=== PATIENT | female | born 1980 | race Caucasian/White ===

== ENCOUNTER 2019-07-31 08:28 | Emergency (ER) | payer OTHER ==
[~2019-07-31] VITALS: Ht 165.1 cm; Wt 86.2 kg
--- NOTE | 2019-07-31 08:30 | NUR ---
[id number] W/ PD FOR MEDICAL CLEARANCE C/O ABDOMINAL PAIN AND NAUSEA. TO ER BED 11, HOOKED TO MONITOR. PATIENT HAD AN EPISODE OF VOMITING. DR RYAN AT BEDSIDE
[2019-07-31 08:56] LABS: BASOPHILS # (AUTO) 0.1 /CMM (0.0-0.2); BASOPHILS % (AUTO) 1.1 % (0.0-2.0); EOSINOPHILS % (AUTO) 2.5 % (0.0-6.0); HEMATOCRIT 47 % (33-45); HEMOGLOBIN 15.6 g/dL (11.5-14.8); LYMPHOCYTES # (AUTO) 1.7 /CMM (0.8-4.8); LYMPHOCYTES % (AUTO) 22.7 % (20.0-44.0); MEAN CORPUSCULAR HGB CONC 33 g/dl (31.0-36.0); MEAN CORPUSCULAR VOLUME 83 fL (82-100); MONOCYTES # (AUTO) 0.5 /CMM (0.1-1.30); MONOCYTES % (AUTO) 6.8 % (2.0-12.0); NEUTROPHILS # (AUTO) 4.9 /CMM (1.8-8.9); NEUTROPHILS % (AUTO) 66.9 % (43.0-81.0); PLATELET COUNT (AUTO) 263 /CMM (150-450); RED BLOOD CELL COUNT(AUTO) 5.74 MIL/uL (4.0-5.2); WHITE BLOOD COUNT (AUTO) 7.3 K/uL (4.3-11.0)
[2019-07-31 09:04] LABS: CALCIUM, SERUM 8.5 mg/dL (8.5-10.1); CREATININE 0.9 mg/dL (0.6-1.3); POTASSIUM 4.8 mmol/L (3.5-5.1)
[2019-07-31] MEDS ORDERED: CLONIDINE HCL 0.1 MG TABLET ONE (09:55)
[2019-07-31] MEDS ORDERED: IBUPROFEN 600 MG TABLET PO ONE ×2 (09:55→10:00)
[2019-07-31] MEDS ORDERED: ONDANSETRON 4 MG TAB.RAPDIS ONE (09:55)
[2019-07-31] MEDS ORDERED: ONDANSETRON 4 MG TAB.RAPDIS SL ONE (10:00)
[2019-07-31] MEDS ORDERED: CLONIDINE HCL 0.1 MG TABLET PO ONE (10:00)
[2019-07-31 10:18] VITALS: BP 134/83
--- NOTE | 2019-07-31 10:18 | NUR ---
Patient discharged in custody of YARITZA [facility] #[id number] in stable condition. Written and verbal after care instructions given. YARITZA verbalizes understanding of instruction.
== END 2019-07-31 10:27 ==
LOC: ER 08:32
DX: F11.23 Opioid dependence with withdrawal (principal); F15.10 Other stimulant abuse, uncomplicated; F13.10 Sedative, hypnotic or anxiolytic abuse, uncomplicated; F43.29 Adjustment disorder with other symptoms
CPT/HCPCS: 36415; 80048; 84702; 85025; 99283; Q0162

== ENCOUNTER 2019-07-31 17:50 | Emergency (ER) | payer OTHER ==
[~2019-07-31] VITALS: Ht 165.1 cm; Wt 86.2 kg
--- NOTE | 2019-07-31 17:54 | NUR ---
BRADY CHISHOLM FOR NAUSEA AND VOMITING. MEDICALLY CLEARED EARLIER. TO ER BED 11, HOOKED TO MONITOR, WARM BLANKET PROVIDED, AWAITING MD HERNADEZ.
--- NOTE | 2019-07-31 18:14 | NUR ---
DR TAPIA AT BEDSIDE
[2019-07-31] MEDS ORDERED: IV NS 0.9% 1,000 ML BAG IV ONE (18:30)
[2019-07-31] MEDS ORDERED: ONDANSETRON HCL/PF 4 MG/2 ML VIAL IVP ONE (18:30)
[2019-07-31 19:05] LABS: BASOPHILS % (AUTO) 0.4 % (0.0-2.0); HEMATOCRIT 50 % (33-45); HEMOGLOBIN 16.6 g/dL (11.5-14.8); LYMPHOCYTES # (AUTO) 1.1 /CMM (0.8-4.8); LYMPHOCYTES % (AUTO) 10.5 % (20.0-44.0); MEAN CORPUSCULAR HGB CONC 33 g/dl (31.0-36.0); MEAN CORPUSCULAR VOLUME 82 fL (82-100); MONOCYTES # (AUTO) 0.3 /CMM (0.1-1.30); MONOCYTES % (AUTO) 2.9 % (2.0-12.0); NEUTROPHILS # (AUTO) 9.3 /CMM (1.8-8.9); NEUTROPHILS % (AUTO) 86.2 % (43.0-81.0); PLATELET COUNT (AUTO) 366 /CMM (150-450); RED BLOOD CELL COUNT(AUTO) 6.11 MIL/uL (4.0-5.2); WHITE BLOOD COUNT (AUTO) 10.8 K/uL (4.3-11.0)
--- NOTE | 2019-07-31 19:27 | NUR ---
REPORT GIVEN TO SOLA RIVAS FOR AMEE
[2019-07-31] MEDS ORDERED: ONDANSETRON HCL/PF 4 MG/2 ML VIAL ONE (19:30)
[2019-07-31 19:59] LABS: CALCIUM, SERUM 8.9 mg/dL (8.5-10.1); POTASSIUM 4.1 mmol/L (3.5-5.1)
[2019-07-31 20:05] LABS: BILIRUBIN,TOTAL 0.7 mg/dL (0.2-1.0); TOTAL PROTEIN, SERUM 8.8 g/dL (6.4-8.2)
[2019-07-31 20:58] LABS: ALBUMIN 3.6 g/dL (3.4-5.0)
[2019-07-31] MEDS ORDERED: METOCLOPRAMIDE HCL 10 MG/2 ML VIAL ONE (21:06)
[2019-07-31 21:30] VITALS: BP 129/75
[2019-07-31] MEDS ORDERED: METOCLOPRAMIDE HCL 10 MG/2 ML VIAL IV ONE (21:30)
== END 2019-07-31 21:31 ==
LOC: ER 17:55
DX: R11.10 Vomiting, unspecified (principal); F11.23 Opioid dependence with withdrawal
CPT/HCPCS: 36415; 80048; 80076; 83690; 85025; 96361; 96374; 96375; 99284; J2405; J2765; J7030

== ENCOUNTER 2021-06-30 05:03 | Inpatient (IN) | payer OTHER ==
[~2021-06-30] VITALS: Ht 175.3 cm; Wt 113.4 kg
--- NOTE | 2021-06-30 05:20 | NUR ---
BIBRA 102 FROM HOME C/O R RIB PAIN X4 DAYS. "KNEED BY BOYFRIEND" +WEAKNESS WHILE WALKING. PT A/OX3. TOLERATING R/A WELL WITH NO SOB
--- NOTE | 2021-06-30 05:33 | NUR ---
PT signed waiver form. valance cutter at pt's bedside
[2021-06-30] MEDS ORDERED: ACETAMINOPHEN 325 MG TABLET ONE (06:49)
[2021-06-30] MEDS ORDERED: IV NS 0.9% 1,000 ML IV ONE (07:00)
[2021-06-30] MEDS ORDERED: ACETAMINOPHEN 325 MG TABLET PO ONE (07:00)
--- NOTE | 2021-06-30 07:15 | NUR ---
DIRECTOR OF CLOUD SERVICES AT PT'S BEDSIDE
[2021-06-30] MEDS ORDERED: IOHEXOL-350 100 ML VIAL IV ONE (07:16)
[2021-06-30] MEDS ORDERED: CT SWABBABLE VALVE TRANS SET 1 EA INFUS.SET MC ONE (07:16)
[2021-06-30] MEDS ORDERED: IV NS 0.9% 250 ML IV ONE (07:17)
[2021-06-30 07:27] LABS: BASOPHILS % (AUTO) 0.1 % (0.0-2.0); EOSINOPHILS % (AUTO) 0.7 % (0.0-6.0); HEMATOCRIT 41 % (33-45); HEMOGLOBIN 13.6 g/dL (11.5-14.8); LYMPHOCYTES # (AUTO) 0.3 K/uL (0.8-4.8); LYMPHOCYTES % (AUTO) 2.3 % (20.0-44.0); MEAN CORPUSCULAR HGB CONC 33 g/dl (31.0-36.0); MEAN CORPUSCULAR VOLUME 79 fL (82-100); MONOCYTES # (AUTO) 0.7 K/uL (0.1-1.30); MONOCYTES % (AUTO) 4.6 % (2.0-12.0); NEUTROPHILS % (AUTO) 92.3 % (43.0-81.0); RED BLOOD CELL COUNT(AUTO) 5.22 MIL/uL (4.0-5.2); WHITE BLOOD COUNT (AUTO) 15.2 K/uL (4.3-11.0)
--- NOTE | 2021-06-30 07:33 | NUR ---
CALLED HOUSE SUP FOR MIDLINE.
[2021-06-30 07:39] LABS: ALBUMIN 1.8 g/dL (3.4-5.0); BILIRUBIN,TOTAL 4.6 mg/dL (0.2-1.0); CALCIUM, SERUM 8.4 mg/dL (8.5-10.1); CREATININE 3.1 mg/dL (0.6-1.3); TOTAL PROTEIN, SERUM 6.3 g/dL (6.4-8.2)
[2021-06-30 07:43] LABS: POTASSIUM 2.7 mmol/L (3.5-5.1)
[2021-06-30] MEDS ORDERED: IV LR 1000 ML 1,000 ML IV ONE (08:00)
--- NOTE | 2021-06-30 08:22 | NUR ---
MIDLINE NURSE AT BEDSIDE
[2021-06-30] MEDS ORDERED: PIPERACILLIN /TAZOBACTAM 3.375 G in IV D5W 50 ML IV ONE (08:30)
--- NOTE | 2021-06-30 08:42 | NUR ---
RT AT BEDSIDE FOR VBG
[2021-06-30] MEDS ORDERED: PIPERACILLIN /TAZOBACTAM 3.375 G VIAL IV ONE (08:47)
[2021-06-30 08:54] LABS: ABG BASE EXCESS -6.4 mmol/L; ABG PCO2 24.4 mmHg (35.0-45.0); ABG PH 7.436 (7.350-7.450); COHb 0.6 % (0.5-1.5); MetHb 0.3 % (0.0-1.5); O2Hb 93.4 % (94.0-97.0); SITE, ABG Other
[2021-06-30] MEDS ORDERED: POTASSIUM CHLORIDE 20 MEQ TAB.PRT.SR PO ONE ×2 (09:13→09:30)
[2021-06-30] MEDS ORDERED: INSULIN REGULAR, HUMAN 100 UNIT/ML 10 ML VIAL ONE (09:13)
--- NOTE | 2021-06-30 09:18 | NUR ---
COVID SWAB DONE AND SENT TO LAB
[2021-06-30] MEDS ORDERED: OMEP20TA20 PO (09:22)
--- NOTE | 2021-06-30 09:24 | NUR ---
MOVE SHEET SUBMITTED AND CALLED FOR TELE BED.
[2021-06-30] MEDS ORDERED: POTASSIUM CHLORIDE 10 MEQ/50 ML PREMIXED IVPB FOR PERIPHERAL LINE IV ONE (09:30)
[2021-06-30] MEDS ORDERED: INSULIN REGULAR, HUMAN 100 UNIT/ML 10 ML VIAL IV ONE ×3 (09:30→12:00)
[2021-06-30] MEDS ORDERED: POTASSIUM CL. PREMIX PERIPHER. 50 ML ONE (09:39)
--- NOTE | 2021-06-30 09:45 | NUR ---
PT IS WHEELED TO CT SCAN VIA [facility].
--- NOTE | 2021-06-30 09:58 | NUR ---
BACK FROM CT SCAN
[2021-06-30 11:19] LABS: EOSINOPHILS % (MANUAL) 1 % (0-4); LYMPHOCYTES % (MANUAL) 3 % (16-48); MONOCYTES % (MANUAL) 6 % (0-11.0); NEUTROPHILS % (MANUAL) 90 (42-76)
[2021-06-30 11:24] LABS: PLATELET COUNT (AUTO) 48 K/uL (150-450)
--- NOTE | 2021-06-30 11:32 | NUR ---
[facility] CALLED CARPET TILE LAYER PAGED.
[2021-06-30 12:32] LABS: CALCIUM, SERUM 7.6 mg/dL (8.5-10.1); CREATININE 3.1 mg/dL (0.6-1.3); POTASSIUM 3.1 mmol/L (3.5-5.1)
[2021-06-30 12:54] LABS: BILIRUBIN,URINE SMALL (NEGATIVE); COLOR,URINE YELLOW (YELLOW); LEUKOCYTE ESTERASE ,URINE SMALL (NEGATIVE); NITRITE, URINE POSITIVE (NEGATIVE); PROTEIN,URINE 30 mg/dl (NEGATIVE); UGLUCOSE 500 MG/DL mg/dL (NEGATIVE)
[2021-06-30 14:13] LABS: BACTERIA,URINE Few /HPF (None Seen); SQUAMOUS EPITHELIAL CELL,UR Few /HPF (None Seen)
--- NOTE | 2021-06-30 14:41 | NUR ---
BED 106
--- NOTE | 2021-06-30 14:46 | NUR ---
REPORT GIVEN TO ANNA RIVAS FOR AMEE
--- NOTE | 2021-06-30 15:00 | NUR ---
BOILER MECHANIC NOTES RECEIVED PATIENT FROM ED, A/O X3 WELSH SPEAKING PATIENT COMPLAINS OF RIGHT RIB PAIN WITH NO AGGRAVATING FACTOR. VITAL SIGNS ARE FOLLOWS: 102.7 TEMP, 139/77 BP, 122 HR, 95 O2, AND 20 RR. O2 SUPPLEMENTATION VIA NASAL CANNULA WITH 4 LITERS OF DELIVERY PER MINUTE. ASSESSMENTS ARE DONE ON PATIENT. ALL SAFETY MEASURES IN PLACE. BED IN LOWEST POSITION AND LOCKED. TWO SIDE RAILS ARE UP. CALL LIGHT WITHIN REACH. WILL CONTINUE TO MONITOR.
[2021-06-30] MEDS ORDERED: DEXTROSE 50%-WATER 50 ML DISP.SYRIN IV PRN (16:00)
[2021-06-30] MEDS ORDERED: Z GUARD REMEDY 4 OZ OINT TP PRN (16:00)
[2021-06-30] MEDS ORDERED: MAG HYDROX/AL HYDROX/SIMETH 30 ML UDC PO PRN (16:00)
[2021-06-30] MEDS ORDERED: MAGNESIUM HYDROXIDE 30 ML UDC PO PRN (16:00)
[2021-06-30] MEDS ORDERED: ACETAMINOPHEN 325 MG TABLET PO PRN (16:00)
[2021-06-30] MEDS ORDERED: ONDANSETRON HCL/PF 4 MG/2 ML VIAL IVP PRN (16:00)
[2021-06-30] MEDS ORDERED: ZOLPIDEM TARTRATE 5 MG TABLET PO PRN (16:00)
[2021-06-30] MEDS: INSULIN GLARGINE, 100 UNIT/ML CARTRIDGE SQ SCH (16:30)
[2021-06-30 17:12] VITALS: BP 139/77
[2021-06-30] MEDS: INSULIN REGULAR, HUMAN 100 UNIT/ML 3 ML VIAL SQ PRN (18:31)
[2021-06-30] MEDS: BLOOD SUGAR DIAGNOSTIC 1 EACH STRIP IN SCH ×2 (18:32→22:10)
--- NOTE | 2021-06-30 19:10 | NUR ---
RN NOTES RECEIVED REPORT FROM MORNING RN. PATIENT IN BED ASLEEP. WITH REED CATHETER CONNECTED TO URINE BAG DRAINING YELLOWISH URINE. WITH MIDLINE AT L UA # 18 FLUSHES WELL. VITAL SIGNS TAKEN AND RECORDED. AFEBRILE. ALL SAFETY MEASURES IN PLACE AT ALL TIMES. HOB ELEVATED. CALL LIGHT WITHIN REACH. WILL CLOSELY MONITOR THE PATIENT.
[2021-06-30] MEDS: IV NS 0.9% 1,000 ML IV PRN (19:37)
--- NOTE | 2021-06-30 19:40 | NUR ---
RN NOTES PATIENT REMAINS STABLE. STARTED IV NS 125 CC/HR, IV ATB STARTED WELL TO RUN @ 4 HOURS.
[2021-06-30] MEDS: PIPERACILLIN /TAZOBACTAM 3.375 G in IV D5W 100 ML IV SCH (19:45)
[2021-06-30 20:00] VITALS: BP 133/75
[2021-06-30] MEDS: *INSULIN REGULAR(HUMULIN R)HUM 100 UNIT/ML VIAL SQ PRN (22:08)
--- NOTE | 2021-06-30 22:10 | NUR ---
RN NOTES BS 207 MG/DL 4 UNITS OF REGULAR INSULIN PER SLIDING SCALE GIVEN
[2021-07-01] VITALS: BP_SYST 121; BP_SYST 123; BP_DIAS 67; BP_DIAS 78
[2021-07-01] MEDS: IV NS 0.9% 1,000 ML IV PRN ×3 (03:21→20:33)
[2021-07-01 04:00] VITALS: BP 132/79
--- NOTE | 2021-07-01 06:39 | NUR ---
RN NOTES PATIENT REMAINS STABLE NO SIGNIFICANT CHANGES IN HEALTH CONDITION AFEBRILE. ALL DUE MEDS GIVEN ORDERED. ALL SAFETY MEASURES IN PLACE AT ALL TIMES. HOB ELEVATED. CALL LIGHT WITHIN REACH. BED ON LOWEST POSITION AND LOCKED. ALL NEEDS ATTENDED. WILL ENDORSED TO MORNING SHIFT FOR AMEE
[2021-07-01 06:55] LABS: BASOPHILS % (AUTO) 0.2 % (0.0-2.0); EOSINOPHILS % (AUTO) 2.1 % (0.0-6.0); HEMATOCRIT 34 % (33-45); HEMOGLOBIN 11.4 g/dL (11.5-14.8); LYMPHOCYTES # (AUTO) 0.7 K/uL (0.8-4.8); LYMPHOCYTES % (AUTO) 3.7 % (20.0-44.0); MEAN CORPUSCULAR HGB CONC 33 g/dl (31.0-36.0); MEAN CORPUSCULAR VOLUME 78 fL (82-100); MONOCYTES # (AUTO) 1.1 K/uL (0.1-1.30); MONOCYTES % (AUTO) 5.8 % (2.0-12.0); NEUTROPHILS # (AUTO) 16.3 K/uL (1.8-8.9); NEUTROPHILS % (AUTO) 88.2 % (43.0-81.0); WHITE BLOOD COUNT (AUTO) 18.4 K/uL (4.3-11.0)
[2021-07-01 07:13] LABS: ALANINE AMINOTRANSFERASE 9 U/L (12-78); ALKALINE PHOSPHATASE 238 U/L (46-116); ASPARTATE AMINOTRANSFERASE 17 U/L (15-37); BILIRUBIN,DIRECT 3.1 mg/dL (0.0-0.2); BILIRUBIN,TOTAL 3.6 mg/dL (0.2-1.0); CALCIUM, SERUM 7.3 mg/dL (8.5-10.1); CARBON DIOXIDE 17 mmol/L (21-32); CHLORIDE 95 mmol/L (98-107); CREATININE 2.9 mg/dL (0.6-1.3); GLUCOSE 176 mg/dL (74-106); MAGNESIUM 1.9 mg/dL (1.8-2.4); PHOSPHORUS 1.2 mg/dL (2.5-4.9); POTASSIUM 2.9 mmol/L (3.5-5.1); SODIUM SERUM 126 mmol/L (136-145); TOTAL PROTEIN, SERUM 5.6 g/dL (6.4-8.2); UREA NITROGEN, BLOOD 48 mg/dL (7-18)
[2021-07-01 07:21] LABS: PLATELET COUNT (AUTO) 38 K/uL (150-450)
--- NOTE | 2021-07-01 07:30 | NUR ---
RN NOTES RECEIVED PATIENT IN BED WITH CLOSED EYES. OPENS EYES UPON CALLING HER NAME. NO SIGNIFICANT CHANGES . AFEBRILE. NO SOB , NO RESPIRATORY DISTRESS NOTED. IV ACCESS L UPPER ARM MIDLINE PATENT RUNNING NS AT 125 ML/HR. REED CATHETER INTACT. ALL SAFETY MEASURES IN PLACE AT ALL TIMES. HOB ELEVATED. CALL LIGHT AND TABLE WITHIN REACH. BED ON LOWEST POSITION AND LOCKED. WILL CONTINUE TO MONITOR.
[2021-07-01 07:35] LABS: CHOLESTEROL 91 mg/dL (<200); LDL 54 mg/dL (0-99)
[2021-07-01] MEDS: BLOOD SUGAR DIAGNOSTIC 1 EACH STRIP IN SCH ×4 (07:40→23:03)
[2021-07-01] MEDS: PANTOPRAZOLE 40 MG TABLET.DR PO SCH (07:44)
--- NOTE | 2021-07-01 08:00 | NUR ---
RN NOTES HELD INSULIN FOR 729 SINCE PATIENT IS REFUSING TO EAT BREAKFAST AND SNACKS. BS= 169
[2021-07-01] MEDS: PIPERACILLIN /TAZOBACTAM 3.375 G in IV D5W 100 ML IV SCH ×2 (08:08→20:33)
[2021-07-01 08:28] LABS: EOSINOPHILS % (MANUAL) 2 % (0-4); LYMPHOCYTES % (MANUAL) 5 % (16-48); MONOCYTES % (MANUAL) 6 % (0-11.0); NEUTROPHILS % (MANUAL) 87 (42-76)
[2021-07-01 08:37] LABS: TRIGLYCERIDES 255 mg/dL (30-150)
[2021-07-01 09:01] LABS: ALBUMIN 1.4 g/dL (3.4-5.0)
[2021-07-01 09:03] LABS: HDL CHOLESTEROL < 10 mg/dL (40-60)
[2021-07-01 09:36] VITALS: BP 138/79
[2021-07-01 12:00] VITALS: BP 115/57
[2021-07-01] MEDS: INSULIN REGULAR, HUMAN 100 UNIT/ML 3 ML VIAL SQ PRN ×2 (13:19→17:33)
[2021-07-01 16:12] VITALS: BP 118/68
[2021-07-01] MEDS ORDERED: K PHOS NEUTRAL 250 MG TABLET PO ONE (16:30)
--- NOTE | 2021-07-01 18:38 | NUR ---
RN CLOSING NOTES PATIENT IN BED WITH CLOSED EYES. OPENS EYES UPON CALLING HER NAME. NO SIGNIFICANT CHANGES . AFEBRILE. NO SOB , NO RESPIRATORY DISTRESS NOTED. IV ACCESS L UPPER ARM MIDLINE PATENT RUNNING NS AT 125 ML/HR. REED CATHETER INTACT. ALL DUE MEDS GIVEN ORDERED.ALL SAFETY MEASURES IN PLACE AT ALL TIMES. HOB ELEVATED. CALL LIGHT AND TABLE WITHIN REACH. BED ON LOWEST POSITION AND LOCKED. WILL ENDORSE FOR AMEE.
--- NOTE | 2021-07-01 19:10 | NUR ---
RN NOTES RECEIVED REPORT FROM MORNING RN. PATIENT IN BED ASLEEP A/O X3 ABLE TO MAKE NEEDS KNOWN. WITH REED CATHETER CONNECTED TO URINE BAG DRAINING YELLOWISH URINE. WITH MIDLINE AT L UA # 18 FLUSHES WELL. WITH ONGOING IVF NS @ 125CC/HR TOLERATING WELL. VITAL SIGNS TAKEN AND RECORDED. AFEBRILE. ALL SAFETY MEASURES IN PLACE AT ALL TIMES. HOB ELEVATED. CALL LIGHT WITHIN REACH. WILL CLOSELY MONITOR THE PATIENT.
[2021-07-01 20:00] VITALS: BP 143/81
--- NOTE | 2021-07-01 22:20 | NUR ---
RN NOTES BS 180 MG/DL REGULAR INSULIN PER SLIDING SCALE GIVEN.
[2021-07-01] MEDS: INSULIN GLARGINE, 100 UNIT/ML CARTRIDGE SQ SCH (23:02)
[2021-07-01] MEDS: *INSULIN REGULAR(HUMULIN R)HUM 100 UNIT/ML VIAL SQ PRN (23:03)
[2021-07-02] VITALS: BP 121/67
[2021-07-02 04:00] VITALS: BP 119/70
[2021-07-02] MEDS: IV NS 0.9% 1,000 ML IV PRN ×2 (04:45→16:11)
--- NOTE | 2021-07-02 05:00 | NUR ---
RN NOTES NOTED MIDLINE IS OUT PATIENT LAYING HER IV LINE. PULLED OUT MIDLINE PUT PRESSURE ANG SECURE WITH TAPE. OFFERED TO RE INSERT PERIPHERAL LINE PATIENT REFUSED WANTED MIDLINE. R/B EXPLAINED STILL REFUSED. NURSE JAW SKINNER INFORMED. ORDERED PLACED.
--- NOTE | 2021-07-02 07:28 | NUR ---
RN OPENING NOTE PATIENT IN BED WITH CLOSED EYES. PT A/0X3. NO SOB , NO RESPIRATORY/ACUTE DISTRESS NOTED. PT. HAS NO IV ACCESS CURRENTLY. MIDLINE ORDERED PRIOR SHIFT. REED CATHETER INTACT. ALL SAFETY MEASURES IN PLACE AT ALL TIMES. HOB ELEVATED. CALL LIGHT AND TABLE WITHIN REACH. BED ON LOWEST POSITION AND LOCKED. WILL CONTINUE TO MONITOR.
[2021-07-02 08:00] VITALS: BP 99/52
[2021-07-02] MEDS: PIPERACILLIN /TAZOBACTAM 3.375 G in IV D5W 100 ML IV SCH (08:24)
[2021-07-02] MEDS: PANTOPRAZOLE 40 MG TABLET.DR PO SCH (08:25)
[2021-07-02] MEDS: BLOOD SUGAR DIAGNOSTIC 1 EACH STRIP IN SCH ×2 (08:29→11:55)
[2021-07-02] MEDS: INSULIN REGULAR, HUMAN 100 UNIT/ML 3 ML VIAL SQ PRN ×2 (08:31→12:13)
[2021-07-02 12:00] VITALS: BP 127/67
[2021-07-02 16:00] VITALS: BP 118/68
--- NOTE | 2021-07-02 16:04 | NUR ---
RN NOTE PT WANTS TO LEAVE AMA. PT HAS BEEN INFORMED THAT SHE HAS AN ACTIVE INFECTION SHOWN BY BLOOD CULTURES. PT HAS BEEN INFORMED OF THE RISKS INVOLVED IN LEAVING AMA. PT WILL CONTACT [employer] [facility] FOR PICKUP.
--- NOTE | 2021-07-02 16:50 | NUR ---
RN NOTE PT LEFT AMA. PT SIGNED AMA AND WAS INFORMED OF ALL THE RISKS INVOLVED. OK PER MD GROVE. PT WAS A/0X4 VERBALLY CONFIRMED UNDERSTANDING. PT WAS WHEELED OUT TO AWAITING [facility] AND TRANSPORTED TO HER HOME. REMOVED PT PEREZ ML FULLY INTACT. REMOVED REED CATHETER FULLY INTACT. PT LEFT AMA.
[2021-07-02] MEDS ORDERED: INSULIN GLARGINE, 100 UNIT/ML CARTRIDGE SQ SCH (22:00)
== END 2021-07-02 16:45 | disposition left against medical advice (07) | DRG 871 ==
LOC: ER 05:10 → TELE1 14:48
PROVIDERS: ADMIT Student in an Organized Health Care Education/Training Program; ATTEND Student in an Organized Health Care Education/Training Program
PROC: 05HF33Z Insertion of Infusion Device into Left Cephalic Vein, Percutaneous Approach (ICD-10-PCS; principal; 2021-06-30)
PROC: 05H933Z Insertion of Infusion Device into Right Brachial Vein, Percutaneous Approach (ICD-10-PCS; 2021-07-02)
DX: A41.50 Gram-negative sepsis, unspecified (principal); N17.0 Acute kidney failure with tubular necrosis; E43 Unspecified severe protein-calorie malnutrition; N13.6 Pyonephrosis; N39.0 Urinary tract infection, site not specified; E87.1 Hypo-osmolality and hyponatremia; E87.2 Acidosis; N20.2 Calculus of kidney with calculus of ureter; Z20.822 Contact with and (suspected) exposure to COVID-19; Z79.899 Other long term (current) drug therapy; E11.65 Type 2 diabetes mellitus with hyperglycemia; E87.6 Hypokalemia; E88.09 Other disorders of plasma-protein metabolism, not elsewhere classified; E66.9 Obesity, unspecified; F15.90 Other stimulant use, unspecified, uncomplicated; K21.9 Gastro-esophageal reflux disease without esophagitis
CPT/HCPCS: 36410; 36415; 36600; 71045-TC; 71100-TC; 76700-TC; 80048-TC; 80061-TC; 80076-TC; 81001; 82803-TC; 82962-TC; 83605-TC; 83690-TC; 83735-TC; 84100-TC; 84295-TC; 84703-TC; 85025-TC; 87040-TC; 87081-TC; 87086-TC; 87186-TC; 97112-TC; 97116-TC; 97530-TC; C9803; G0378; J1815; J2543; J3480; J7030; J7050; J7060; J7120; Q9967

== ENCOUNTER 2021-07-03 00:34 | Inpatient (IN) | payer OTHER ==
[~2021-07-03] VITALS: Ht 170.2 cm; Wt 90.7 kg
[~2021-07-03 00:34] MED LIST: OMEP20TA20 PO
--- NOTE | 2021-07-03 00:48 | NUR ---
PT BIBRA 102 FROM HOME C/O ABD PAIN "I STILL HAVE INFECTION". PT A/OX3. TOLERATING R/A WELL WITH NO SOB.
--- NOTE | 2021-07-03 01:19 | NUR ---
URINE COLLECTED AND SENT TO LAB
--- NOTE | 2021-07-03 01:20 | NUR ---
[facility]SA SWAB COLLECTED AND SENT TO LAB. PATIENT'S BELONGINGS LIST DONE.
--- NOTE | 2021-07-03 01:21 | NUR ---
SPINE SUPERVISOR & RN AT PT'S BEDSIDE. NOT ABLE TO DRAW BLOOD AT THIS TIME. WILL F/U & AGAIN LATER.
--- NOTE | 2021-07-03 01:25 | NUR ---
NURSING SUP CALLED FOR MIDLINE PLACEMENT.
--- NOTE | 2021-07-03 02:00 | NUR ---
SECOND ATTEMPT AT PATIENT BLOOD DRAW MADE.
--- NOTE | 2021-07-03 02:15 | NUR ---
BLOOD WORK HANDED OFF TO PAINTINGS RESTORER
--- NOTE | 2021-07-03 02:19 | NUR ---
DR. VIJAY SPENCER ON TELEPHONE CALL WITH DR. HOU REGARDING ADMISSION
[2021-07-03 02:42] LABS: BASOPHILS # (AUTO) 0.1 K/uL (0.0-0.2); BASOPHILS % (AUTO) 0.4 % (0.0-2.0); EOSINOPHILS % (AUTO) 2.4 % (0.0-6.0); HEMATOCRIT 31 % (33-45); HEMOGLOBIN 10.4 g/dL (11.5-14.8); LYMPHOCYTES % (AUTO) 7.1 % (20.0-44.0); MEAN CORPUSCULAR HGB CONC 34 g/dl (31.0-36.0); MEAN CORPUSCULAR VOLUME 77 fL (82-100); MONOCYTES # (AUTO) 0.9 K/uL (0.1-1.30); MONOCYTES % (AUTO) 6.7 % (2.0-12.0); NEUTROPHILS # (AUTO) 11.4 K/uL (1.8-8.9); NEUTROPHILS % (AUTO) 83.4 % (43.0-81.0); RED BLOOD CELL COUNT(AUTO) 3.98 MIL/uL (4.0-5.2); WHITE BLOOD COUNT (AUTO) 13.7 K/uL (4.3-11.0)
[2021-07-03 02:45] LABS: PLATELET COUNT (AUTO) 45 K/uL (150-450)
[2021-07-03 03:00] LABS: CREATININE 3.5 mg/dL (0.6-1.3); POTASSIUM 3.1 mmol/L (3.5-5.1)
[2021-07-03] MEDS ORDERED: ZOLPIDEM TARTRATE 5 MG TABLET PO PRN (03:00)
[2021-07-03] MEDS ORDERED: DEXTROSE 50%-WATER 50 ML DISP.SYRIN IV PRN (03:00)
[2021-07-03] MEDS ORDERED: ACETAMINOPHEN 325 MG TABLET PO PRN (03:00)
[2021-07-03] MEDS ORDERED: MAGNESIUM HYDROXIDE 30 ML UDC PO PRN (03:00)
[2021-07-03] MEDS ORDERED: *INSULIN REGULAR(HUMULIN R)HUM 100 UNIT/ML VIAL SQ PRN (03:00)
[2021-07-03] MEDS ORDERED: ONDANSETRON HCL/PF 4 MG/2 ML VIAL IVP PRN (03:00)
[2021-07-03] MEDS ORDERED: Z GUARD REMEDY 4 OZ OINT TP PRN (03:00)
[2021-07-03] MEDS ORDERED: MAG HYDROX/AL HYDROX/SIMETH 30 ML UDC PO PRN (03:00)
[2021-07-03 03:11] LABS: MAGNESIUM 1.8 mg/dL (1.8-2.4); PHOSPHORUS 2.5 mg/dL (2.5-4.9)
--- NOTE | 2021-07-03 04:43 | NUR ---
ASSIGNED ROOM 307-2
[2021-07-03] MEDS ORDERED: PIPERACILLIN /TAZOBACTAM 3.375 G in IV D5W 50 ML IV SCH (06:00)
[2021-07-03] MEDS ORDERED: ZOSYN IVPB 2.25 G in IV D5W 50ml IV SCH ×2 (07:00→14:00)
--- NOTE | 2021-07-03 07:12 | NUR ---
REPORT GIVEN TO 3 TAMIKA RN
[2021-07-03] MEDS ORDERED: PANTOPRAZOLE 40 MG TABLET.DR PO SCH (07:30)
--- NOTE | 2021-07-03 07:42 | NUR ---
PT TRANSPORT TO [facility] WITH ACLS PROTOCOLS IN PLACE
--- NOTE | 2021-07-03 07:45 | NUR ---
ASSISTANT FINANCE DIRECTOR NOTE PATIENT RECEIVED TWO PERSONNEL FROM ER WITH LAURO.PATIENT AOX4 ABLE TO VERBALIZE NEEDS.NO SIGN SOB/DISTRESS NOTED.NO COMPLAINED PAIN /DISCOMFORT NOTED.VITAL SIGN BP 125/71 P79 R18 T99.3.PT REFUSED TO BODY ASSESSMENT.NO TAKING PICTURE. AWAITING MID LINE INSERTION AWARE. ALL BELONGING ACCOUNTED FOR.LIGTHER PLACE AT CHARGE NURSE DESK.PT PLACE ON TELE MONITOR. PT ORIENTED TO THE ROOM,HOW TO USE THE CALL LIGHT.SAFETY MEASURE IN [facility] BED.CALL LIGHT WITH IN REACH.CONTINUE TO MONITOR.
[2021-07-03 08:00] VITALS: BP 125/71
[2021-07-03] MEDS: BLOOD SUGAR DIAGNOSTIC 1 EACH STRIP VI SCH ×4 (08:02→21:50)
[2021-07-03] MEDS: INSULIN REGULAR, HUMAN 100 UNIT/ML 3 ML VIAL SQ PRN ×3 (08:06→16:54)
[2021-07-03] MEDS: IV NS 0.9% 1,000 ML IV PRN ×2 (08:07→20:25)
--- NOTE | 2021-07-03 09:54 | NUR ---
RT NOTE PATIENT REFUSED EKG. RN AWARE.
[2021-07-03] MEDS: MEROPENEM 500 MG in IV NS 0.9% 50 ML IV SCH ×2 (12:50→20:26)
--- NOTE | 2021-07-03 14:17 | NUR ---
RN NOTE PATIENT COMPLAINED OF GEN. PAIN 12/09.MD GIVE ORDER TORADOR 50MG PO PRN.
[2021-07-03] MEDS ORDERED: KETOROLAC TROMETHAMINE 10 MG TABLET PO PRN (14:30)
--- NOTE | 2021-07-03 14:55 | NUR ---
RN NOTE NOTIFIED OF K 3.1, GAVE NEW ORDER FOR K 40 MEQ PO X 1.
[2021-07-03] MEDS ORDERED: POTASSIUM CHLORIDE 20 MEQ TAB.PRT.SR PO ONE (15:00)
[2021-07-03 16:00] VITALS: BP_SYST 125; BP_SYST 134; BP_DIAS 71; BP_DIAS 79
[2021-07-03 17:58] LABS: BASOPHILS % (MANUAL) 0 % (0.0-2.0); EOSINOPHILS % (MANUAL) 1 % (0-4); LYMPHOCYTES % (MANUAL) 6 % (16-48); MONOCYTES % (MANUAL) 4 % (0-11.0); NEUTROPHILS % (MANUAL) 89 (42-76)
--- NOTE | 2021-07-03 18:36 | NUR ---
MORTGAGE LOAN CLOSER CLOSING NOTE PATIENT RESTING IN BED. .PATIENT AOX4 ABLE TO VERBALIZE NEEDS. NO SIGN SOB/DISTRESS NOTED. NO COMPLAINED PAIN /DISCOMFORT NOTED. PATIENT HAS LEFT UPPER ARM MIDLINE PATENT AND INTACT, RUNNING NS @ 100 ML/HR. PATIENT IS REFUSING TELE MONITORING AT THIS TIME. PATIENT IS NONCOMPLIANT WITH CHANGING AND MEDICATIONS AT TIMES. EXPLAINED RISK AND BENEFITS X 2 STILL REFUSED. MD AWARE, SAFETY MEASURE IN PLACE LOW LUCK BED.CALL LIGHT WITH IN REACH. WILL ENDORSE TO ONCOMING SHIFT.
--- NOTE | 2021-07-03 19:24 | NUR ---
RECRUITMENT ASSISTANT OPENING NOTES PATIENT RECEIVED SLEEPING IN BED, EASILY AROUSABLE; A/OX4; BREATHING EVEN AND UNLABORED; NO SOB NOTED; TOLERATING ROOM AIR WELL; PATIENT ABLE TO MAKE NEEDS KNOWN; PER PREVIOUS SHIFT, PATIENT IS TELE BUT REFUSING TO HAVE TELE BOX ON; CHARGE NURSE AWARE; PATIENT REFUSING SOME CARE AND ONLY COMPLIANT WITH MEDICATION; PATIENT HAS PEREZ MIDLINE #18 INFUSING NS @100ML/HR; TOLERATING IVF WELL; NO S/S OF REDNESS OR INFILTRATION NOTED; PATIENT AMBULATORY WITH STEADY GAIT; PER PREVIOUS SHIFT, PATIENT ALSO WANTING TO LEAVE AMA EARLIER TODAY AND HAS SIGNED PAPERWORK BUT CHANGED HER MIND, PER REPORT, PATIENT WAS PREVIOUSLY ADMITTED TO HOSPITAL AND LEFT AMA FROM DIFFERENT UNIT; SAFETY PRECAUTIONS IMPLEMENTED; BED LOCKED IN LOW POSITION; SIDE RAILSX2 UP; CALL LIGHT WITHIN REACH; WILL CONT TO MONITOR AND CONTINUE PLAN OF CARE;
[2021-07-03 20:00] VITALS: BP 140/82
--- NOTE | 2021-07-03 20:53 | NUR ---
COMPUTER PROJECT MANAGER NOTES PATIENT VERBALIZED SHE WILL LEAVE AMA AFTER HER ANTIBIOTIC IS FINISHED; CHARGE NURSE MADE AWARE
--- NOTE | 2021-07-03 21:57 | NUR ---
PUBLIC HEALTH ADVISOR NOTES PATIENT CONSTANTLY YELLING, VERY NEEDY AND DEMANDING; LIMITS SET; PATIENT VERBALIZED UNDERSTANDING; CHARGE NURSE AWARE
--- NOTE | 2021-07-03 21:58 | NUR ---
CHROME CLEANER NOTES PATIENT YELLING, REQUESTING FOR SOMEONE TO CALL AMBULANCE FOR HER SO SHE CAN LEAVE HOSPITAL; CHARGE NURSE AWARE; PATIENT INFORMED IF LEAVING AMA, NO TRANSPORTATION WILL BE PROVIDED. WILL CONT TO MONITOR
--- NOTE | 2021-07-03 22:59 | NUR ---
CONTENT DEVELOPMENT SPECIALIST NOTES PATIENT LEAVING AMA, PAPERWORKS SIGNED; MIDLINE IV SITE REMOVED, IV TIP INTACT; NO S/S OF INFILTRATION OR REDNESS NOTED; PATIENT CALLED TAXI TO PICK HER UP; PATIENT WHEELED DOWNSTAIRS, ACCOMPANIED BY CIGARETTE CATCHER; PER CHARGE NURSE DROP OFF PATIENT BY ER ENTRANCE FOR END FRAZER; PATIENT LEFT WITH ALL BELONGINGS; Addendum: 07/03/21 at 2307 by SAMMY MORELOS RN PATIENT EDUCATED ON IMPORTANCE OF COMPLIANCE THROUGHOUT HOSPITALIZATION; PATIENT EDUCATED ON IMPORTANCE OF FINISHING IV ABX, CIGARETTE CATCHER WITNESS PATIENT REFUSED TO STAY AND WANTED MIDLINE TO BE REMOVED; CHARGE NURSE AWARE;
== END 2021-07-03 23:00 | disposition left against medical advice (07) | DRG 871 ==
LOC: ER 00:36 → TELE 06:48
PROVIDERS: ADMIT Internal Medicine; ATTEND Internal Medicine
PROC: 05HC33Z Insertion of Infusion Device into Left Basilic Vein, Percutaneous Approach (ICD-10-PCS; principal; 2021-07-03)
DX: A41.50 Gram-negative sepsis, unspecified (principal); N17.0 Acute kidney failure with tubular necrosis; E43 Unspecified severe protein-calorie malnutrition; D65 Disseminated intravascular coagulation [defibrination syndrome]; N39.0 Urinary tract infection, site not specified; N13.6 Pyonephrosis; E87.1 Hypo-osmolality and hyponatremia; E87.2 Acidosis; E11.9 Type 2 diabetes mellitus without complications; Z20.822 Contact with and (suspected) exposure to COVID-19; Z79.899 Other long term (current) drug therapy; E87.6 Hypokalemia; E88.09 Other disorders of plasma-protein metabolism, not elsewhere classified; E66.01 Morbid (severe) obesity due to excess calories; Z68.31 Body mass index [BMI] 31.0-31.9, adult; E86.1 Hypovolemia
CPT/HCPCS: 36415; 80048-TC; 82962-TC; 83735-TC; 84100-TC; 85025-TC; 87081-TC; 97116-TC; 97530-TC; C9803; G0378; J1815; J2185; J2543; J7030; J7060

== ENCOUNTER 2022-09-29 15:03 | Emergency (ER) | payer OTHER ==
[~2022-09-29] VITALS: Ht 165.1 cm; Wt 86.2 kg
--- NOTE | 2022-09-29 16:35 | NUR ---
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
[2022-09-29] MEDS ORDERED: ONDANSETRON HCL/PF 4 MG/2 ML VIAL IVP ONE (17:00)
[2022-09-29] MEDS ORDERED: IV NS 0.9% 1,000 ML BAG IV ONE (17:00)
[2022-09-29] MEDS ORDERED: KETOROLAC TROMETHAMINE INJ 30 MG/ML VIAL IV ONE (17:00)
[2022-09-29] MEDS ORDERED: ONDANSETRON HCL/PF 4 MG/2 ML VIAL ONE (17:15)
[2022-09-29] MEDS ORDERED: KETOROLAC TROMETHAMINE INJ 30 MG/ML VIAL ONE (17:15)
--- NOTE | 2022-09-29 18:03 | NUR ---
CONTACTED NURSING SILVICULTURE PROFESSOR FOR MIDLINE
--- NOTE | 2022-09-29 18:50 | NUR ---
MIDLINE NURSE AT BEDSIDE
--- NOTE | 2022-09-29 19:10 | NUR ---
BLOOD DRAWN AND SENT TO LAB
[2022-09-29 19:34] LABS: BASOPHILS # (AUTO) 0.1 K/uL (0.0-0.2); BASOPHILS % (AUTO) 0.7 % (0.0-2.0); EOSINOPHILS % (AUTO) 2.3 % (0.0-6.0); HEMATOCRIT 32 % (33-45); HEMOGLOBIN 10.3 g/dL (11.5-14.8); LYMPHOCYTES # (AUTO) 1.5 K/uL (0.8-4.8); LYMPHOCYTES % (AUTO) 20.1 % (20.0-44.0); MEAN CORPUSCULAR HGB CONC 33 g/dl (31.0-36.0); MEAN CORPUSCULAR VOLUME 77 fL (82-100); MONOCYTES # (AUTO) 0.6 K/uL (0.1-1.30); MONOCYTES % (AUTO) 7.3 % (2.0-12.0); NEUTROPHILS # (AUTO) 5.3 K/uL (1.8-8.9); NEUTROPHILS % (AUTO) 69.6 % (43.0-81.0); PLATELET COUNT (AUTO) 356 K/uL (150-450); RED BLOOD CELL COUNT(AUTO) 4.15 MIL/uL (4.0-5.2); WHITE BLOOD COUNT (AUTO) 7.7 K/uL (4.3-11.0)
[2022-09-29 19:39] LABS: CALCIUM, SERUM 8.5 mg/dL (8.5-10.1); CARBON DIOXIDE 30 mmol/L (21-32); CHLORIDE 105 mmol/L (98-107); CREATININE 1.1 mg/dL (0.6-1.3); GLUCOSE 89 mg/dL (74-106); POTASSIUM 3.6 mmol/L (3.5-5.1); SODIUM SERUM 141 mmol/L (136-145); UREA NITROGEN, BLOOD 21 mg/dL (7-18)
[2022-09-29 19:44] LABS: ALANINE AMINOTRANSFERASE 26 U/L (12-78); ALBUMIN 2.4 g/dL (3.4-5.0); ALKALINE PHOSPHATASE 114 U/L (46-116); ASPARTATE AMINOTRANSFERASE 14 U/L (15-37); BILIRUBIN,DIRECT 0.1 mg/dL (0.0-0.2); BILIRUBIN,TOTAL 0.2 mg/dL (0.2-1.0); TOTAL PROTEIN, SERUM 7.9 g/dL (6.4-8.2)
[2022-09-29 19:47] LABS: LIPASE < 10 U/L (73-393)
--- NOTE | 2022-09-29 20:16 | NUR ---
PATIENT SIGNED A WAIVER
[2022-09-29] MEDS ORDERED: IOHEXOL-300 100 ML VIAL IV ONE (20:21)
[2022-09-29] MEDS ORDERED: CT SWABBABLE VALVE TRANS SET 1 EA INFUS.SET MC ONE (20:21)
[2022-09-29] MEDS ORDERED: IV NS 0.9% 250 ML IV ONE (20:21)
--- NOTE | 2022-09-29 20:25 | NUR ---
PATIENT TAKEN TO CT VIA LAURO
--- NOTE | 2022-09-29 21:25 | NUR ---
URINE COLLECTED AND GIVEN TO LAB DIRECTLY BY ROB
[2022-09-29 21:43] LABS: BILIRUBIN,URINE NEGATIVE (NEGATIVE); COLOR,URINE YELLOW (YELLOW); LEUKOCYTE ESTERASE ,URINE 2+ (NEGATIVE); NITRITE, URINE NEGATIVE (NEGATIVE); PROTEIN,URINE TRACE mg/dl (NEGATIVE); UGLUCOSE NEGATIVE (NEGATIVE)
[2022-09-29] MEDS ORDERED: LACT10SO68 PO (21:44)
[2022-09-29] MEDS ORDERED: METF-881 PO (21:44)
[2022-09-29] MEDS ORDERED: CEPH250C PO (21:48)
[2022-09-29 22:05] LABS: BACTERIA,URINE 4+ /HPF (None Seen); RBC,URINE 0-2 /HPF (0-2)
[2022-09-29 22:07] LABS: MUCUS,URINE Few /LPF (None Seen); TRICHOMONAS,URINE Few /HPF (None Seen)
--- NOTE | 2022-09-29 22:25 | NUR ---
IV removed. Catheter intact and site benign. Pressure and 4x4 applied to site. No bleeding noted.Patient discharged WITH [employer] OFFICERS in stable condition. Written and verbal after care instructions GIVEN.
[2022-09-29 22:27] VITALS: BP 120/85; TEMP 98
== END 2022-09-29 22:27 ==
LOC: ER 15:15
DX: N39.0 Urinary tract infection, site not specified (principal); K59.00 Constipation, unspecified; R10.9 Unspecified abdominal pain; E11.9 Type 2 diabetes mellitus without complications; Z79.84 Long term (current) use of oral hypoglycemic drugs; Z79.899 Other long term (current) drug therapy
CPT/HCPCS: 99285; 74177; 96374; 96361; 96375; 85025; 80048; 87086; 83690; 80076; 84703; 81001; 36415; 36410; J1885; J2405; J7050; Q9967

== ENCOUNTER 2022-09-29 23:10 | Emergency (ER) | payer OTHER ==
[~2022-09-29] VITALS: Ht 165.1 cm; Wt 86.2 kg
[~2022-09-29 23:10] MED LIST changes: +CEPH250C PO; +LACT10SO68 PO; +METF-881 PO
--- NOTE | 2022-09-29 23:25 | NUR ---
[facility] in [facility] - 09/30/22 at 0022 by DOUG Patient discharged to home in stable condition. Written and verbal after care instructions given. Patient verbalizes understanding of instruction.
--- NOTE | 2022-09-29 23:31 | NUR ---
PT IS MEDICALLY CLEARED FOR INCARCERATION AND RELEASED UNDER THE CAR OF 2 [employer] OFFICERS. PT IS IN STABLE CONDITION. SHE IS VERBALLY RESPONSIVE.
--- NOTE | 2022-09-29 23:32 | NUR ---
PT LEFT AMBULATORY ON HAND CUFF WITH STEADY GAIT.
[2022-09-29 23:33] VITALS: BP 132/77; TEMP 98.3
== END 2022-09-29 23:34 ==
LOC: ER 23:16
DX: E11.9 Type 2 diabetes mellitus without complications; Z79.84 Long term (current) use of oral hypoglycemic drugs; Z79.899 Other long term (current) drug therapy